=== PATIENT | female | born 1950 | race Caucasian/White ===

== ENCOUNTER → 2023-04-03 10:07 | Outpatient (BNVA) | payer BC, MEDICARE, SELFPAY | PROVIDERS: Visit Provider Physician Assistant Surgical ==

== ENCOUNTER 2023-04-04 14:22 | Outpatient (AMB) | payer SELFPAY ==
--- NOTE | 2023-04-04 14:19 | MHC.OFFVISWM ---
Intake VS Expanded 04/04/23 18:41 Height 5 ft 6 in Weight 230 lb 9 oz BMI 37.2 Body Fat 105.4 Body Fat Percentage 45.7 Free Fat Mass 125.2 Visceral Mass 15 Water Mass 88.4 BMR 1,743 Intake Visit Reasons: TV Gastric Balloon Allergies No Known Allergies Allergy (Verified 04/04/23 14:23) Medication List - Last Reconciled 04/04/23 by Rudy Poon MD cholecalciferol (vitamin D3) 25 mcg PO DAILY hydrochlorothiazide 12.5 mg PO DAILY multivitamin with iron (Daily Multiple Vitamins with Iron tablet) 1 tab PO DAILY omeprazole magnesium (Prilosec) 10 mg PO DAILY HPI TV Gastric Balloon HPI Details Start time: 2pm, End time: 3pm I spent 50 minutes speaking with the patient on the phone plus an additional 10 minutes reviewing and updating records for a total of 60 minutes HPI Comments History of Present Illness Details Patient is interested in endogastric balloon therapy. She wants to lose weight but she does not want to have bariatric surgery because of her age PFS Medical History (Updated 04/04/23 @ 14:25 by Rudy Poon MD) DJD (degenerative joint disease) GERD (gastroesophageal reflux disease) Hypertension Surgical History (Updated 04/03/23 @ 10:49 by Jojo Branch CMA) Hx of section Hx of knee surgery Hx of lumpectomy Social History (Updated 04/03/23 @ 10:47 by Jojo Branch CMA) Alcohol intake: never Patient Tobacco Use Status: Never used Tobacco Physical Exam Vital Signs: BMI result Body Mass Index 37.2 Assessment & Plan Assessment & Plan (1) Obesity: Code(s): E66.9 - Obesity, unspecified Plan: 1. Plan for endogastric balloon therapy. We discussed the process in detailed including the need for endoscopy to place the balloon as well as to remove 6 months later under sedation or general anesthesia. We discussed the need to be on a PPI and a multivitamin throughout the balloon therapy. We discussed the potential risks and complications of the balloon including premature removal, premature balloon with potential balloon migration and bowel obstructions, gastric ulcer, GI bleeding, gastric or esophageal perforation, pancreatitis. Specifically for the premature balloon deflation we discussed the instillation of methylene blue into the balloon so in case of premature deflation the patient's urine would be discolored. We also discussed the potential symptoms the patient may experience the first few days until the stomach is fully adjusted to the balloon, including nausea, vomiting, abdominal cramping, GERD, dehydration that may require IV hydration, fatigue, lack of energy, excessive fullness, or burping. I reassured her that these symptoms are temporary and subside completely within the first week. We also discussed that the expected weight loss is about 25% of her initial weight which corresponds to about 58lbs. We also discussed the possibility of inadequate weight loss. I emphasized the importance of purchasing a body composition scale and the need for weekly weight measurements and communication with me. We also discussed the need for a proper nutritional plan that will include a combination of protein shakes, protein bars and a proper food-based meal. The patient will need to be on a liquid diet during the first week until the stomach is fully adjusted to the balloon as well as the last week before endoscopic removal so the stomach empties from any residual food. We also discussed the philosophy of the program that we use the balloon as a motivating factor to work with me and change slowly her lifestyle by improving her nutritional and exercise plan. This approach will maximize the weight loss from the balloon therapy and allow her to maintain her weight after the balloon is removed. Finally we discussed the importance of long-term follow-up in our practice in order to maintain her weight loss long-term. The patient is in agreement with the plan and wants to proceed with placement. 2. The patient will undergo a blood work and a H pylori breath test. 3. We will get a copy of her most recent gastroscopy and colonoscopy as well as recent cardiac work-up. 4. I gave her directions as to which body composition scale, protein shakes and bars she needs to buy prior to balloon placement. (2) BMI 37.0-37.9, adult: Code(s): Z68.37 - Body mass index [BMI] 37.0-37.9, adult (3) Hypertension: Code(s): I10 - Essential (primary) hypertension (4) GERD (gastroesophageal reflux disease): Code(s): K21.9 - Gastro-esophageal reflux disease without esophagitis (5) DJD (degenerative joint disease): Code(s): M19.90 - Unspecified osteoarthritis, unspecified site Orders: Orders Vitamin B12 and Folate Today E66.9 - Obesity, unspecified, I10 - Essential (primary) hypertension, K21.9 - Gastro-esophageal reflux disease without esophagitis, Z68.37 - Body mass index [BMI] 37.0-37.9, adult Comprehensive Met. Panel Today E66.9 - Obesity, unspecified, I10 - Essential (primary) hypertension, K21.9 - Gastro-esophageal reflux disease without esophagitis, Z68.37 - Body mass index [BMI] 37.0-37.9, adult C Reactive Protein Today E66.9 - Obesity, unspecified, I10 - Essential (primary) hypertension, K21.9 - Gastro-esophageal reflux disease without esophagitis, Z68.37 - Body mass index [BMI] 37.0-37.9, adult Ferritin Today E66.9 - Obesity, unspecified, I10 - Essential (primary) hypertension, K21.9 - Gastro-esophageal reflux disease without esophagitis, Z68.37 - Body mass index [BMI] 37.0-37.9, adult Hemoglobin A1c Today E66.9 - Obesity, unspecified, I10 - Essential (primary) hypertension, K21.9 - Gastro-esophageal reflux disease without esophagitis, Z68.37 - Body mass index [BMI] 37.0-37.9, adult Insulin Today E66.9 - Obesity, unspecified, I10 - Essential (primary) hypertension, K21.9 - Gastro-esophageal reflux disease without esophagitis, Z68.37 - Body mass index [BMI] 37.0-37.9, adult IRON PROFILE Today E66.9 - Obesity, unspecified, I10 - Essential (primary) hypertension, K21.9 - Gastro-esophageal reflux disease without esophagitis, Z68.37 - Body mass index [BMI] 37.0-37.9, adult Lipid Panel Today E66.9 - Obesity, unspecified, I10 - Essential (primary) hypertension, K21.9 - Gastro-esophageal reflux disease without esophagitis, Z68.37 - Body mass index [BMI] 37.0-37.9, adult PTHI Today E66.9 - Obesity, unspecified, I10 - Essential (primary) hypertension, K21.9 - Gastro-esophageal reflux disease without esophagitis, Z68.37 - Body mass index [BMI] 37.0-37.9, adult TSH reflex Free T4 Today E66.9 - Obesity, unspecified, I10 - Essential (primary) hypertension, K21.9 - Gastro-esophageal reflux disease without esophagitis, Z68.37 - Body mass index [BMI] 37.0-37.9, adult Vitamin A Today E66.9 - Obesity, unspecified, I10 - Essential (primary) hypertension, K21.9 - Gastro-esophageal reflux disease without esophagitis, Z68.37 - Body mass index [BMI] 37.0-37.9, adult Vitamin B1 Today E66.9 - Obesity, unspecified, I10 - Essential (primary) hypertension, K21.9 - Gastro-esophageal reflux disease without esophagitis, Z68.37 - Body mass index [BMI] 37.0-37.9, adult Vitamin D 25-OH Total Today E66.9 - Obesity, unspecified, I10 - Essential (primary) hypertension, K21.9 - Gastro-esophageal reflux disease without esophagitis, Z68.37 - Body mass index [BMI] 37.0-37.9, adult Zinc Today E66.9 - Obesity, unspecified, I10 - Essential (primary) hypertension, K21.9 - Gastro-esophageal reflux disease without esophagitis, Z68.37 - Body mass index [BMI] 37.0-37.9, adult Complete Blood Count Auto Diff Today E66.9 - Obesity, unspecified, I10 - Essential (primary) hypertension, K21.9 - Gastro-esophageal reflux disease without esophagitis, Z68.37 - Body mass index [BMI] 37.0-37.9, adult H Pylori Breath Test Today E66.9 - Obesity, unspecified, I10 - Essential (primary) hypertension, K21.9 - Gastro-esophageal reflux disease without esophagitis, Z68.37 - Body mass index [BMI] 37.0-37.9, adult Telehealth Telehealth Location of provider rendering services: practice address Location of patient: address on file Patient Identification confirmed using: Name, : Yes Telehealth method: voice only Patient verbally consented to treatment: Yes Patient verbally consented to billing insurance company: Yes Patient informed of any privacy concerns related to visit: Yes Minutes spent on Phone/Video with Pt.: 60 Coding Level of Care Code Tele [facility] Pt Level 5 (43261) Diagnoses Obesity E66.9 BMI 37.0-37.9, adult Z68.37 Hypertension I10 GERD (gastroesophageal reflux disease) K21.9 DJD (degenerative joint disease) M19.90 Time Spent (min) 60
[2023-04-04 18:41] VITALS: BMI 37.2
== END 2023-04-04 21:05 | disposition home or self-care (01) ==
PROVIDERS: Visit Provider Surgery
DX: E66.9 Obesity, unspecified (principal); Z68.37 Body mass index [BMI] 37.0-37.9, adult
CPT/HCPCS: 99443

== ENCOUNTER → 2023-04-04 14:22 | Outpatient (BNVA) | payer BC, MEDICARE, SELFPAY | PROVIDERS: Visit Provider Surgery ==

== ENCOUNTER 2023-04-22 08:53 | Outpatient (REF) | payer MEDICARE, SELFPAY ==
[2023-04-25 12:53] LABS: H Pylori Breath Test Positive (Negative)
== END 2023-04-22 08:54 | disposition home or self-care (01) ==
LOC: HO.LNP 08:53
PROVIDERS: Visit Provider Surgery
DX: E66.9 Obesity, unspecified (principal); Z68.37 Body mass index [BMI] 37.0-37.9, adult; K21.9 Gastro-esophageal reflux disease without esophagitis; I10 Essential (primary) hypertension
CPT/HCPCS: 83013; 99211

== ENCOUNTER 2023-06-04 09:24 | Outpatient (AMB) | payer MEDICARE, SELFPAY ==
--- NOTE | 2023-06-04 09:26 | A.OFFVIS_ITS ---
Intake VS Expanded 06/04/23 09:31 BP 176/79 H Blood Pressure Location Rt brachial Blood Pressure Position Sitting Pulse 79 Pulse Source Pulse Oximeter Temp 97.4 F Temperature Source Temporal Artery Scan Pulse Oximetry 98 Oxygen Delivery Method Room Air Height 5 ft 6 in Weight 228 lb BMI 36.8 Body Fat % 47.9 Body Fat Mass 109.2 Fat Free Mass 118.8 Visceral Fat Rating 16.0 Body Water % 36.8 Body Water Mass 83.8 Muscle Mass/Score 112.8 Basal Metabolic Rate/Score 1,670 Intake Visit Reasons: (OV) f/u Gastric Balloon Allergies No Known Allergies Allergy (Verified 06/04/23 09:30) HPI HPI Comments History of Present Illness Details Here to discuss the [employer]ber[employer] gastric balloon [facility] Medical History (Updated 06/04/23 @ 18:17 by Rudy Poon MD) DJD (degenerative joint disease) GERD (gastroesophageal reflux disease) Hypertension Surgical History (Updated 06/04/23 @ 09:33 by Jojo Branch CMA) Hx of oral surgery Hx of knee surgery Hx of section Hx of lumpectomy Social History Alcohol intake: never Patient Tobacco Use Status: Never used Tobacco Physical Exam Vital Signs: Last Vital Signs Temp 97.4 F 06/04/23 09:31 Pulse 79 06/04/23 09:31 BP 176/79 H 06/04/23 09:31 Pulse Ox 98 06/04/23 09:31 Oxygen Delivery Method Room Air 06/04/23 09:31 BMI result Body Mass Index 36.8 Assessment & Plan Assessment & Plan (1) Obesity: Code(s): E66.9 - Obesity, unspecified Plan: 1.? Plan for endogastric balloon therapy. Patient came with her and asked a lot of questions. We discussed the process in detailed including the need for endoscopy to place the balloon as well as to remove 6 months later under sedation or general anesthesia. We discussed the benefits and disadvantages of this in relation to the [employer]urion swallowable gastric balloon. We discussed the need to be on a PPI and a multivitamin throughout the balloon therapy. We discussed the potential risks and complications of the balloon including premature removal, premature balloon with potential balloon migration and bowel obstructions, gastric ulcer, GI bleeding, gastric or esophageal p erforation, pancreatitis. Specifically for the premature balloon deflation we discussed the instillation of methylene blue into the balloon so in case of premature deflation the patient's urine would be discolored. We also discussed the potential symptoms the patient may experience the first few days until the stomach is fully adjusted to the balloon, including nausea, vomiting, abdominal cramping, GERD, dehydration that may require IV hydration, fatigue, lack of energy, excessive fullness, or burping. I reassured her that these symptoms are temporary and subside completely within the first week. We also discussed that the expected weight loss is about 25% of her initial weight which corresponds to about 50lbs. We also discussed the possibility of inadequate weight loss. She has already purchased a body composition scale and the need for weekly weight measurements and communication with me. We also discussed the need for a proper nutritional plan that will include a combination of protein shakes, protein bars and a proper food-based meal. She has purchased these as well. The patient will need to be on a liquid diet during the first week until the stomach is fully adjusted to the balloon as well as the last week before endoscopic removal so the stomach empties from any residual food. We also discussed the philosophy of the program that we use the balloon as a motivating factor to work with me and change slowly her lifestyle by improving her nutritional and exercise plan. This approach will maximize the weight loss from the balloon therapy and allow her to maintain her weight after the balloon is removed. Finally we discussed the importance of long-term follow-up in our practice in order to maintain her weight loss long-term. The patient is in agreement with the plan and wants to proceed with placement. (2) BMI 36.0-36.9,adult: Code(s): Z68.36 - Body mass index [BMI] 36.0-36.9, adult Coding Level of Care Code Est Pt Level 5 (87836) Diagnoses Obesity E66.9 BMI 36.0-36.9,adult Z68.36 Time Spent (min) 50
[2023-06-04 09:31] VITALS: BP 176/79; PULSE 79; TEMP 36.3; O2SAT 98; BMI 36.8
== END 2023-06-04 18:22 | disposition home or self-care (01) ==
PROVIDERS: Visit Provider Surgery
DX: E66.9 Obesity, unspecified (principal); Z68.36 Body mass index [BMI] 36.0-36.9, adult
CPT/HCPCS: 99215

== ENCOUNTER → 2023-06-04 09:24 | Outpatient (BNVA) | payer BC, SELFPAY | PROVIDERS: Visit Provider Surgery | DX: E66.9 Obesity, unspecified (principal); Z68.36 Body mass index [BMI] 36.0-36.9, adult | CPT/HCPCS: 99212 ==

== ENCOUNTER → 2023-06-11 09:59 | Outpatient (BNVA) | payer MEDICARE, SELFPAY | PROVIDERS: PCP Student in an Organized Health Care Education/Training Program; Visit Provider Surgery | DX: E66.9 Obesity, unspecified (principal); K21.9 Gastro-esophageal reflux disease without esophagitis; Z68.36 Body mass index [BMI] 36.0-36.9, adult | CPT/HCPCS: 99212 ==

== ENCOUNTER 2023-06-11 10:14 | Outpatient (AMB) | payer MEDICARE, SELFPAY ==
--- NOTE | 2023-06-11 10:02 | A.OFFVIS_ITS ---
Intake VS Expanded 06/11/23 10:08 BP 184/84 H Blood Pressure Location Rt brachial Blood Pressure Position Sitting Pulse 66 Pulse Source Pulse Oximeter Temp 97.7 F Temperature Source Temporal Artery Scan Pulse Oximetry 99 Oxygen Delivery Method Room Air Height 5 ft 6 in Weight 228 lb 9.6 oz BMI 36.9 Body Fat % 47.0 Body Fat Mass 107.4 Fat Free Mass 121.0 Visceral Fat Rating 15.0 Body Water % 37.4 Body Water Mass 85.4 Muscle Mass/Score 114.8 Basal Metabolic Rate/Score 1,694 Intake Visit Reasons: (OV) Pre Op Gastric Balloon 06/19/23 Allergies No Known Allergies Allergy (Verified 06/11/23 10:09) PFSH Medical History (Updated 06/11/23 @ 11:02 by Rudy Poon MD) DJD (degenerative joint disease) GERD (gastroesophageal reflux disease) Hypertension Surgical History (Updated 06/04/23 @ 09:33 by Jojo Branch CMA) Hx of oral surgery Hx of knee surgery Hx of section Hx of lumpectomy Social History Alcohol intake: never Patient Tobacco Use Status: Never used Tobacco Physical Exam Vital Signs: Last Vital Signs Temp 97.7 F 06/11/23 10:08 Pulse 66 06/11/23 10:08 BP 184/84 H 06/11/23 10:08 Pulse Ox 99 06/11/23 10:08 Oxygen Delivery Method Room Air 06/11/23 10:08 BMI result Body Mass Index 36.9 Assessment & Plan Assessment & Plan (1) Obesity: Code(s): E66.9 - Obesity, unspecified Plan: 1.? Plan for endogastric balloon therapy. We discussed the process in detailed including the need for endoscopy to place the balloon as well as to remove 6 months later under sedation or general anesthesia. We discussed the need to be on a PPI and a multivitamin throughout the balloon therapy. We discussed the p otential risks and complications of the balloon including premature removal, premature balloon with potential balloon migration and bowel obstructions, gastric ulcer, GI bleeding, gastric or esophageal perforation, pancreatitis. Specifically for the premature balloon deflation we discussed the instillation of methylene blue into the balloon so in case of premature deflation the patient's urine would be discolored. We also discussed the potential symptoms the patient may experience the first few days until the stomach is fully adjusted to the balloon, including nausea, vomiting, abdominal cramping, GERD, dehydration that may require IV hydration, fatigue, lack of energy, excessive fullness, or burping. I reassured her that these symptoms are temporary and subside completely within the first week. We also discussed that the expected weight loss is about 25% of her initial weight which corresponds to about 58lbs. We also discussed the possibility of inadequate weight loss. I emphasized the importance of purchasing a body composition scale and the need for weekly weight measurements and communication with me. We also discussed the need for a proper nutritional plan that will include a combination of protein shakes, protein bars and a proper food-based meal. The patient will need to be on a liquid diet during the first week until the stomach is fully adjusted to the balloon as well as the last week before endoscopic removal so the stomach empties from any residual food. We also discussed the philosophy of the program that we use the balloon as a motivating factor to work with me and change slowly her lifestyle by improving her nutritional and exercise plan. This approach will maximize the weight loss from the balloon therapy and allow her to maintain her weight after the balloon is removed. Finally we discussed the importance of long-term follow- up in our practice in order to maintain her weight loss long-term. The patient is in agreement with the plan and wants to proceed with placement. 2. The patient will undergo a blood work and an EKG 3. I gave her directions as to which body composition scale, protein shakes and bars she needs to buy prior to balloon placement. 4. Preop prescriptions were provided and explained the purpose of each one. Need to be purchased preop. Start Pantoprazole now as you get it from the pharmacy, 1 pill per day. Sucralfate, Levsin and Zofran are for after the procedure as needed. 5. Avoid aspirin, motrin, Advil, Aleve, Ibuprofen, Naproxyn. Tylenol is OK. 6. She needs to purchase Gatorade zero, or Crystal light or Pedialyte or Propel 7. Will do basic preop blood work-up any day between 06/12/23 and Friday06/13/23 fasting for 12 hours and is scheduled to see the Anesthesiologist prior to the day of surgery. 8. Importance of adherence to postop folllow-up and recommendations was underscored and she understands that. 9. Stop food and bars as of Friday06/17/23 and continue with 4 Celebrate Rebu ild protein shakes (HALF scoop EACH in 8oz low fat milk) at 8am-10am, 11am-1pm, 2pm-4pm, 5pm-7pm and one more Celebrate Rebuild shake with ONE scoop in 8oz low fat milk at 8pm-10pm 10. No soups, broths or V8 11. Please stop the Hydrochlorothiazide on Friday06/16/23. Check your blood pressure daily in the morning and let me know if it is over 120/80 12. Please take at the day of the procedure the following medications: NONE 13. Absolutely no smoking or vaping, or marijuana until the procedure and for at least the first 4 weeks. Only nicotine patches are allowed. 14. Send me weight measurements today and again on 06/19/23 at the day of procedure before you go to the hospital. 15. Avoid any steroids by mouth for any reason. Let me know if someone prescribes them to you (2) BMI 36.0-36.9,adult: Code(s): Z68.36 - Body mass index [BMI] 36.0-36.9, adult (3) GERD (gastroesophageal reflux disease): Code(s): K21.9 - Gastro-esophageal reflux disease without esophagitis Orders: Orders Prothrombin Time INR Today E66.9 - Obesity, unspecified, Z68.36 - Body mass index [BMI] 36.0-36.9, adult Partial Thromboplastin Time Today E66.9 - Obesity, unspecified, Z68.36 - Body mass index [BMI] 36.0-36.9, adult ECG 12 lead EKG Today E66.9 - Obesity, unspecified, Z68.36 - Body mass index [BMI] 36.0-36.9, adult Medications: New pantoprazole 40 mg PO DAILY 30 tabs 2RF K21.9 - Gastro-esophageal reflux disease without esophagitis sucralfate 10 mL PO BID 400 mL 0RF K21.9 - Gastro-esophageal reflux disease without esophagitis hyoscyamine sulfate (Levsin) 0.125 mg PO QID 30 tabs 1RF R10.9 - Unspecified abdominal pain ondansetron 4 mg PO Q6H 30 tabs 0RF nausea and vomiting R11.0 - Nausea Coding Level of Care Code Est Pt Level 4 (32942) Diagnoses Obesity E66.9 BMI 36.0-36.9,adult Z68.36 GERD (gastroesophageal reflux disease) K21.9 Time Spent (min) 35
[2023-06-11 10:08] VITALS: BP 184/84; PULSE 66; TEMP 36.5; O2SAT 99; BMI 36.9
== END 2023-06-11 11:14 | disposition home or self-care (01) ==
PROVIDERS: PCP Student in an Organized Health Care Education/Training Program; Visit Provider Surgery
DX: E66.9 Obesity, unspecified (principal); Z68.36 Body mass index [BMI] 36.0-36.9, adult; K21.9 Gastro-esophageal reflux disease without esophagitis
CPT/HCPCS: 99214

== ENCOUNTER 2023-06-18 06:05 | Day surgery (SDC) | payer MEDICARE, SELFPAY ==
--- NOTE | 2023-06-11 11:12 | ECG_ITS ---
Test Reason : obs Blood Pressure : / mmHG Vent. Rate : 069 BPM Atrial Rate : 069 BPM P-R Int : 128 ms QRS Dur : 090 ms QT Int : 402 ms P-R-T Axes : 061 009 -09 degrees QTc Int : 430 ms Normal sinus rhythm Normal ECG No previous ECGs available Referred By: Rudy Poon Electronically Signed By:CHYNA NELSON MD
[2023-06-12 10:03] LABS: MANUAL DIFF FLAG NO
[2023-06-12 10:51] LABS: Basophils Percent Auto 0.5 % (0-2); Eosinophils Absolute Auto 0.1 X10*3/uL (0.0-0.4); Eosinophils Percent Auto 1.8 % (0-4); Hematocrit 32.2 % (37.0-47.0); Imm Gran Abs Auto 0.02 X10*3/uL (0.00-0.03); Imm Gran Pct Auto 0.3 % (0.0-0.4); Lymphocytes Absolute Auto 1.1 X10*3/uL (1.2-4.9); Lymphocytes Percent Auto 16.1 % (20-40); Mean Corpuscular HGB Conc 31.1 g/dl (31.0-35.0); Mean Platelet Volume 11.4 fL (9.4-12.3); Monocytes Absolute Auto 0.5 X10*3/uL (0.1-1.2); Monocytes Percent Auto 7.8 % (2-11); Neutrophils Absolute Auto 4.8 x10*3/uL (2.0-8.3); Neutrophils Percent Auto 73.5 % (45-73); Platelet Count 285 X10*3/uL (160-400); Red Cell Distribution Width 15.9 % (11.0-16.0); White Blood Count 6.6 X10*3/uL (4.8-10.8)
[2023-06-12 10:59] LABS: Estimated Average Glucose 111 mg/dL; Hemoglobin A1c % 5.5 % (<6.0)
[2023-06-12 11:01] LABS: INTERNATIONAL NORM RATIO 0.9 (0.9-1.1); Prothrombin Time 10.9 SEC (11.1-13.3)
[2023-06-12 11:04] LABS: Partial Thromboplastin Time 29.4 SEC (26.0-36.4)
[2023-06-12 12:07] LABS: Alanine Aminotransferase 22 U/L (0-31); Albumin Level 3.9 g/dL (3.5-5.0); Alkaline Phosphatase 71 U/L (39-117); Anion Gap 14 (12-20); Aspartate Amino Transferase 20 U/L (5-31); Bilirubin Total 0.4 mg/dL (0.0-1.0); Blood Urea Nitrogen 23 mg/dL (9-16); C Reactive Protein 0.92 mg/dL (< or = 0.50); Calcium 9.6 mg/dL (8.4-10.2); Carbon Dioxide 25 mmol/L (22-29); Chloride 106 mmol/L (96-108); Cholesterol 193 mg/dL (<200); Estimated Glomerular Filt Rate > 60; Glucose Random 101 mg/dL (60-115); HDL Cholesterol 51 mg/dL (>40); Iron 24 mcg/dL (30-160); LDL Cholesterol Calculated 121 mg/dL (<100); Percent Iron Saturation 6 % (15-50); Potassium 3.9 mmol/L (3.3-5.1); Sodium 141 mmol/L (135-145); Total Iron Binding Capacity 383 mcg/dL (228-428); Total Protein 7.8 g/dL (6.5-8.0); Triglycerides 107 mg/dL (<150); Unsaturated Iron Binding 359 ug/dL
[2023-06-12 12:11] LABS: Ferritin 18 ng/mL (10-250); Insulin 14 uU/mL (2-29); TSH reflex Free T4 6.68 uIU/mL (0.32-4.0); Vitamin D 25-OH Total 74.9 ng/mL (>30)
[2023-06-12 12:18] LABS: Folate 11.9 ng/mL (> or = 4.0); Vitamin B12 > 2000 pg/mL (200-900)
[2023-06-12 12:45] LABS: Free T4 (Free Thyroxine) 0.87 ng/dL (0.71-1.85)
[2023-06-13 18:32] LABS: Calcium (PTHI) 9.4 mg/dL (8.6-10.4); PTHI 19 pg/mL (16-77)
--- NOTE | 2023-06-13 21:36 | P.HPSUR_ITS ---
Pre-Procedural Eval Section A Date of Service: 06/13/23 The patient is an INPATIENT: No The History & Physical has been completed within 30 days and I have reviewed it.: Yes Section B Chief Complaint: Morbid (severe) obesity due to excess calories Relevant Family History (Specify if Yes): No Relevant Social History: None Present Medications: None Medical History: No relevant PMH History of Previous Operations: No relevant previous surgery Allergies: Allergies Allergy/AdvReac Type Severity Reaction Status Date / Time No Known Allergies Allergy Verified 06/11/23 10:09 Review of Systems Sugical H&P ROS: Negative: Constitution, Cardiovascular, Respiratory, Neurological, Psychiatric, Hem-Onc, Allergic/Immunologic, Gastrointestinal, Genitourinary, Musculoskeletal, Integumentary, Endocrine and Eyes/Ears/Nos e/Throat Exam Surgical H&P Exam: Normal: HEENT, Normal: Heart, Normal: Lungs, Normal: Extremities, Normal: Abdomen, Normal: Skin and Normal: Neurological Plan Diagnosis/Plan: Unchanged I have reviewed the history and physical and performed a pertinent physical examination on my patient. No changes have occurred unless specified. Time Spent With Patient Time: Total time managing care of this patient today ____ minutes.
[2023-06-15 16:12] LABS: Zinc 63 mcg/dL (60-130)
[2023-06-16 12:52] LABS: Vitamin B1 10 nmol/L (8-30)
--- NOTE | 2023-06-17 08:42 | HO.ANESPROP2 ---
Documented by User: Shantelle Nixon NP 06/17/23 10:14 HPI - Anesthesia Eval Consult details Narrative: 72yo F for EGD Gastric Balloon Placement Last TSH elevated @ 6.68 PMFSH Active Problems Active Problems: All Active Problems (Updated 06/13/23 @ 22:23 by Rudy Poon MD) Hypothyroidism (Acute) Nausea (Acute) BMI 36.0-36.9,adult (Acute) DJD (degenerative joint disease) (Acute) GERD (gastroesophageal reflux disease) (Acute) Hypertension (Acute) BMI 37.0-37.9, adult (Acute) Obesity (Acute) Past Medical History Medical History (Updated 07/11/23 @ 10:39 by Rudy Poon MD) History of thyroid disease Anemia DJD (degenerative joint disease) GERD (gastroesophageal reflux disease) Hypertension Surgical History Surgical History (Updated 06/18/23 @ 06:24 by Susan Zavala RN) Hx of oral surgery Hx of knee surgery Hx of section Hx of lumpectomy Social History Alcohol intake: never Patient Tobacco Use Status: Former Tobacco user Tobacco use type: Cigarette Meds Allergies Allergy/AdvReac Type Severity Reaction Status Date / Time No Known Allergies Allergy Verified 06/11/23 10:09 Home Medications Medication Instructions Recorded Confirmed Last Taken Type cholecalciferol (vitamin D3) 25 25 mcg PO DAILY 04/03/23 04/04/23 Unknown History mcg (1,000 unit) capsule hydrochlorothiazide 12.5 mg capsule 12.5 mg PO DAILY 04/03/23 04/04/23 Unknown History multivitamin with iron (Daily 1 tab PO DAILY 04/03/23 04/04/23 Unknown History Multiple Vitamins with Iron tablet) Exam Exam Date and Time: June 17, 2023 0842 Pertinent Lab Results Pertinent Lab Results: Laboratory Tests 06/12/23 10:01 WBC 6.6 RBC 3.70 L Hgb 10.0 L Hct 32.2 L MCV 87.0 MCH 27.0 MCHC 31.1 RDW 15.9 Plt Count 285 MPV 11.4 Immature Gran % (Auto) 0.3 Neut % (Auto) 73.5 H Lymph % (Auto) 16.1 L Cuming % (Auto) 7.8 Eos % (Auto) 1.8 Baso % (Auto) 0.5 Lymph # (Auto) 1.1 L Cuming # (Auto) 0.5 Eos # (Auto) 0.1 Baso # (Auto) 0.0 Abs Immat Gran (auto) 0.02 Absolute Neuts (auto) 4.8 Absolute Nucleated RBC 0.000 Nucleated RBC % (auto) 0.0 PT 10.9 L INR 0.9 APTT 29.4 Sodium 141 Potassium 3.9 Chloride 106 Carbon Dioxide 25 Anion Gap 14 BUN 23 H Creatinine 0.84 Estim Creat Clear Calc TNP Estimated GFR > 60 Random Glucose 101 Estimat Average Glucose 111 Hemoglobin A1c % 5.5 Insulin Level 14 Calcium 9.6 Iron 24 L TIBC 383 % Saturation 6 L Unsat Iron Binding 359 Ferritin 18 Total Bilirubin 0.4 AST 20 ALT 22 Alkaline Phosphatase 71 C-Reactive Protein 0.92 H Total Protein 7.8 Albumin 3.9 Triglycerides 107 Cholesterol 193 LDL Cholesterol, Calc 121 H HDL Cholesterol 51 Vitamin B1 10 Vitamin B12 > 2000 H 25-OH Vitamin D Total 74.9 Folate 11.9 TSH 6.68 H Free T4 0.87 PTH Intact 19 Calcium (PTH Intact) 9.4 Zinc 63 Narrative Narrative: EKG 05/2023 Vent. Rate : 069 BPM Atrial Rate : 069 BPM P-R Int : 128 ms QRS Dur : 090 ms QT Int : 402 ms P-R-T Axes : 061 009 -09 degrees QTc Int : 430 ms Normal sinus rhythm Normal ECG No previous ECGs available Assessment and Plan Assessment Anesthesia Assessment: Chart Reviewed Documented by User: Aly Carerra MD 07/17/23 18:29 REPLACED BY [facility] Past Medical History Medical History (Updated 07/11/23 @ 10:39 by Rudy Poon MD) History of thyroid disease Anemia DJD (degenerative joint disease) GERD (gastroesophageal reflux disease) Hypertension Functional capacity: independent ambulation Family History Family history of problems with anesthesia: No Surgical History Surgical History (Updated 06/18/23 @ 06:24 by Susan Zavala RN) Hx of oral surgery Hx of knee surgery Hx of section Hx of lumpectomy History of Problems with Anesthesia: No Social History Alcohol intake: never Patient Tobacco Use Status: Former Tobacco user Tobacco use type: Cigarette Meds Allergies Allergy/AdvReac Type Severity Reaction Status Date / Time No Known Allergies Allergy Verified 06/11/23 10:09 Home Medications Medication Instructions Recorded Confirmed Last Taken Type cholecalciferol (vitamin D3) 25 25 mcg PO DAILY 04/03/23 04/04/23 Unknown History mcg (1,000 unit) capsule hydrochlorothiazide 12.5 mg capsule 12.5 mg PO DAILY 04/03/23 04/04/23 Unknown History multivitamin with iron (Daily 1 tab PO DAILY 04/03/23 04/04/23 Unknown History Multiple Vitamins with Iron tablet) Exam Airway Mallampati Class: IV Loose/Missing/Broken Teeth: Yes Assessment and Plan Assessment Anesthesia Assessment: Anesthesia Plan Discussed Final Anesthetic Review Family History of Problems with Anesthesia: No History of Problems with Anesthesia: No NPO: Yes ASA Class: III Final Preanesthetic Review: Meds/Allgs Chart Reviewed, Consent Obtained/Reviewed and Anes Risks/Benef Reviewed Patient Risk: High Procedure Risk: Intermediate Anesthetic Plan Anesthetic Plan: GA, MAC: and Agree w/ Assess. and Plan Disposition: Standard PACU
[2023-06-18] VITALS (16 sets, daily range): BP systolic 123–166; BP diastolic 52–82; PULSE 58–82; RESP 13–16; TEMP 36.1–36.6; O2SAT 94–99; BMI 34.8
[2023-06-18] MEDS: Lactated Ringers 1,000 ML 999 ML IV (06:46)
[2023-06-18] MEDS: Aprepitant 32 MG/4.4 ML VIAL IVPUSH (06:47)
--- NOTE | 2023-06-18 07:32 | P.BOP_ITS ---
Brief Operative Note Date of Service: 06/18/23 Pre-op diagnosis: Severe obesity with comorbidities (see below) Post-op diagnosis: same Procedure: PROCEDURE DATE: 06/18/2023 PREOPERATIVE DIAGNOSIS: Severe obesity with a BMI of 37.2 kg/m2 comorbidities including hypothyroidism, hypertension, GERD, DJD, history of breast cancer, anemia POSTOPERATIVE DIAGNOSIS: ?Same as above and distal gastritis PROCEDURE: [id number] with endoscopic Orbera Gastric balloon placement Surgeon: ?Rk Poon M.D.. Ph.D. Palliative Care Physician: None ? Anesthesia: General anesthesia Estimated blood loss: None FINDINGS AND PROCEDURE: ? OPERATIVE INDICATIONS: ?The patient is a 72 year old female known to me who is interested to lose weight. After a 28.3lbs (10.26% TBWL) pre-procedural weight loss, the patient is here today for endoscopic Orbera gastric balloon placement. We discussed with the patient preoperatively all available weight loss methods we offer and she opted to proceed with the Orbera gastric balloon. Risks and complications of the gastric balloon therapy were discussed with the patient in advance particularly the possibility of perforation or bleeding that may require surgical intervention, premature balloon deflation and bowel obstructions, gastric ulcer, esophageal injury, pancreatitis, dehydration, need for IV lfuids or premature endoscopic removal of the balloon. The patient understood the risks and was in agreement with the plan. ? PROCEDURE: After informed consent was obtained by the patient, the patient was ?transferred to the Operating Room and was placed in the supine position.? After successful induction of general anesthesia, an upper endoscopy was performed next, the oropharynx and esophagus appeared within the normal limits. There was no obvious hiatal hernia. The z-line was smooth. The stomach was entered and it appeared to be of normal size. There was mild gastritis at distal antrum. There was no stricture or ulcer. The pylorus and proximal duodenum were visualized but I was not able to enter to the duodenum as the stomach was quite tortuous. A retroflexion was performed and no pathology was noted at the gastric fundus or near the GE junction. At that point the stomach was decompressed and the scope was withdrawn from the patient's mouth. The Orbera gastric balloon was passed transorally into the stomach. Once the balloon was advanced into the stomach, the gastroscope was re-inserted to confirm that the balloon catheter was in a good position and there was no injury to the esophagus or stomach. Once I confirmed all the above, the balloon was in flated under continuous endsocopic visualization with 550ml of sterile saline mixed with 3ml of methylene blue. Once the balloon was inflated, the catheter was pulled back and detached from the balloon itself without difficulty. The catheter was removed from the patient's mouth. The balloon was insepcted carefully with the gastroscope to make sure that it was in a good position and there was no obvious leak of fluid from the valve. The balloon was in a good position and there was no leak from the valve. At that point the stomach was decompressed and the scope was withdrawn from the patient's mouth while the stomach and esophagus were inspected again from any injuries. There were not any noted. The patient was awaken and was transferred in stable condition to the Recovery Room for further care. I was present and performed all steps of the procedure. There were no residents to assist with this case. Surgeon: Rudy Poon MD Anesthesia: GETA Was an Palliative Care Physician used for this Procedure?: No Palliative Care Physician: Ashley Gregorio Estimated blood loss (mL): 0 IV fluids (mL): 800 Urine output (mL): 0 (No [place] to record output) Pathology: none sent Condition: stable Disposition: PACU
[2023-06-18 08:05] LABS: Urine Cytology See Pathology rpt
[2023-06-18] MEDS: Pantoprazole Sodium 40 MG/10 ML VIAL IVPUSH (09:11)
[2023-06-18] MEDS: Thiamine HCL 100 MG in 0.9 % Sodium Chloride 100 ML 202 MG IV (10:03)
[2023-06-18] MEDS: Folic Acid 1 MG in 0.9 % Sodium Chloride 50 ML 100.4 MG IV (10:39)
[2023-06-18] MEDS: Lactated Ringers 1,000 ML 100 ML IVCONT (10:39)
[2023-06-18] MEDS: Cyanocobalamin (Vitamin B-12) 1,000 MCG/ML VIAL 1000 MCG IM (11:14)
[2023-06-18] MEDS: ondansetron HCL 4 MG/2 ML VIAL IVPUSH (11:34)
[2023-06-18 12:54] LABS: Vitamin A 50 mcg/dL (38-98)
== END 2023-06-18 12:35 | disposition home or self-care (01) ==
PROVIDERS: PCP Student in an Organized Health Care Education/Training Program; Visit Provider Surgery
PROC: (CPT 43290; principal; 2023-06-18 07:30)
DX: E66.01 Morbid (severe) obesity due to excess calories (principal); Z68.37 Body mass index [BMI] 37.0-37.9, adult; K21.9 Gastro-esophageal reflux disease without esophagitis; K29.60 Other gastritis without bleeding; D64.9 Anemia, unspecified; I10 Essential (primary) hypertension; E03.9 Hypothyroidism, unspecified; Z79.899 Other long term (current) drug therapy; Z85.3 Personal history of malignant neoplasm of breast; Z87.891 Personal history of nicotine dependence
CPT/HCPCS: 43290; 36415; 80053; 80061; 82306; 82607; 82728; 82746; 83036; 83525; 83540; 83970; 84425; 84439; 84443; 84590; 84630; 85025; 85610; 85730; 86140; 88112; 93005; C1726; C9145; J1100; J1756; J2250; J2405; J3411; Q9968

== ENCOUNTER → 2023-06-18 06:05 | Outpatient (BNV) | payer SELFPAY | PROVIDERS: PCP Student in an Organized Health Care Education/Training Program; Visit Provider Surgery | DX: E66.01 Morbid (severe) obesity due to excess calories (principal); Z68.36 Body mass index [BMI] 36.0-36.9, adult | CPT/HCPCS: 43290 ==

== ENCOUNTER 2023-06-27 08:09 | Outpatient (AMB) | payer MEDICARE, SELFPAY ==
--- NOTE | 2023-06-27 11:45 | A.OFFVIS_ITS ---
Intake VS Expanded 06/27/23 11:58 Height 5 ft 6 in Weight 216 lb 8 oz BMI 34.9 Body Fat % 46 Body Fat Mass 99.6 Fat Free Mass 117 Visceral Fat Rating 16 Body Water % 37 Body Water Mass 80.2 Basal Metabolic Rate/Score 1,503 Intake Visit Reasons: TV Post Op Gastric Balloon 06/18/23 Allergies No Known Allergies Allergy (Verified 06/11/23 10:09) HPI TV Post Op Gastric Balloon 06/18/23 HPI Details Start time: 11.45am, End time: 12.13pm ?I spent 23 minutes speaking with the patient on the phone plus an additional 5 minutes reviewing and updating records for a total of 28 minutes HPI Comments History of Present Illness Details Overall weight loss: 4.8lbs, or 2.21% TBWL Feels well. Denies any nausea, abdominal pain or GERD PFSH Medical History (Updated 06/27/23 @ 12:01 by Rudy Poon MD) History of thyroid disease Anemia DJD (degenerative joint disease) GERD (gastroesophageal reflux disease) Hypertension Surgical History (Updated 06/18/23 @ 06:24 by Susan Zavala RN) Hx of oral surgery Hx of knee surgery Hx of section Hx of lumpectomy Social History Alcohol intake: never Patient Tobacco Use Status: Former Tobacco user Tobacco use type: Cigarette Assessment & Plan Assessment & Plan (1) Obesity: Code(s): E66.9 - Obesity, unspecified Plan: 1. Please change nutritional plan to one Celebrate Rebuild with HALF scoop in 8oz almond milk at 9am-11am, lunch at 12pm (4 forks of protein and 4 forks of salad or vegetables), a Zone Perfect protein bar at 2pm-4pm, dinner at 6pm (4 forks of protein and 4 forks of salad or vegetables) and one more Zone Perfect protein bar OR a Celebrate Rebuild with HALF scoop in 8oz almond milk at 8pm- 10pm. 2. Avoid soups, broths, spinach, kale, lettuce and gloria 3. Start treadmill with an incline of 2.0 and speed of 2.5 mph. Increase incline by 1 every 3 min to a max incline of 8.0, stay 3min at 8.0 and then return to 2.0 and repeat same steps until calorie goal of 300 calories is met. Goal is to burn 2000 calories per week. 4. You can also use the elliptical or the bike for 300 calories or split and so 150 calories in one machine and 150 calories at the other machine 5. Let me know if you feel hungry or you develop any nausea, vomiting, heartburn or abdominal pain 6. Send me weight measurements weekly on Wednesdays 7. Continue Pantoprazole, levothyroxine and multivitamins daily 8. Check your blood pressure daily. If it is below 120/70 do not take any medications. If it is 121/71 to 130/80, take half Lisinopril. If it is between 131/91 to 140/90, take half Lisinopril and one Hydrochlorothiazide. If it is over 141/91 take one Lisinopril and one Hydrochlorothiazide (2) BMI 34.0-34.9,adult: Code(s): Z68.34 - Body mass index [BMI] 34.0-34.9, adult Telehealth Telehealth Location of provider rendering services: practice address Location of patient: address on file Patient Identification confirmed using: Name, : Yes Telehealth method: voice only Patient verbally consented to treatment: Yes Patient verbally consented to billing insurance company: Yes Patient informed of any privacy concerns related to visit: Yes Minutes spent on Phone/Video with Pt.: 28 Coding Level of Care Code Tele Est Pt Level 3 (79416) Diagnoses Obesity E66.9 BMI 34.0-34.9,adult Z68.34 Time Spent (min) 28
[2023-06-27 11:58] VITALS: BMI 34.9
== END 2023-06-27 12:14 | disposition home or self-care (01) ==
LOC: HO.HBS 08:09
PROVIDERS: PCP Student in an Organized Health Care Education/Training Program; Visit Provider Surgery
DX: E66.9 Obesity, unspecified (principal); Z68.34 Body mass index [BMI] 34.0-34.9, adult
CPT/HCPCS: 99443

== ENCOUNTER → 2023-06-27 08:09 | Outpatient (BNVA) | payer MEDICARE, SELFPAY | PROVIDERS: PCP Student in an Organized Health Care Education/Training Program; Visit Provider Surgery ==

== ENCOUNTER 2023-07-11 08:13 | Outpatient (AMB) | payer MEDICARE, SELFPAY ==
--- NOTE | 2023-07-11 10:22 | MHC.OFFVISWM ---
Intake VS Expanded 07/11/23 10:33 Height 5 ft 6 in Weight 208 lb 6 oz BMI 33.6 Body Fat % 44 Body Fat Mass 91.7 Fat Free Mass 116.8 Visceral Fat Rating 15 Body Water % 38.4 Body Water Mass 80 Basal Metabolic Rate/Score 1,529 Intake Visit Reasons: TV PO Gastric Balloon 06/18/23 Allergies No Known Allergies Allergy (Verified 06/11/23 10:09) HPI TV PO Gastric Balloon 06/18/23 HPI Details Start time: 10.25am, End time: 10.45am ?I spent 15 minutes speaking with the patient on the phone plus an additional 5 minutes reviewing and updating records for a total of 20 minutes HPI Comments History of Present Illness Details Overall weight loss: 13lbs, or 5.8% TBWL Has COVID presently and complains of nausea and voming. Has been on Pavloxid which has such as adverse reactions Presently drinks only water PFSH Medical History (Updated 07/11/23 @ 10:39 by Rudy Poon MD) History of thyroid disease Anemia DJD (degenerative joint disease) GERD (gastroesophageal reflux disease) Hypertension Surgical History (Updated 06/18/23 @ 06:24 by Susan Zavala RN) Hx of oral surgery Hx of knee surgery Hx of section Hx of lumpectomy Social History Alcohol intake: never Patient Tobacco Use Status: Former Tobacco user Tobacco use type: Cigarette Assessment & Plan Assessment & Plan (1) Obesity: Code(s): E66.9 - Obesity, unspecified Plan: 1. Please update me daily how you feel 2. Do not use the Lisinopril or the Hydrochlorothiazide (water pill) 3. Talk to your doctor about the side effects you are experiencing as they may be related to the Pavloxid 4. Drink only water, 1oz every 15 minutes and track how many oz you drink per day and update me daily. 5. Try to do as many Celebrate Rebuild shakes per day mixing HALF scoop each in 8oz of water, any temperature you prefer 6. Continue multivitamins and Pantoprazole (2) BMI 32.0-32.9,adult: Code(s): Z68.32 - Body mass index [BMI] 32.0-32.9, adult Telehealth Telehealth Location of provider rendering services: practice address Location of patient: address on file Patient Identification confirmed using: Name, : Yes Telehealth method: voice only Patient verbally consented to treatment: Yes Patient verbally consented to billing insurance company: Yes Patient informed of any privacy concerns related to visit: Yes Minutes spent on Phone/Video with Pt.: 20 Coding Level of Care Code Tele Est Pt Level 3 (03982) Diagnoses Obesity E66.9 BMI 32.0-32.9,adult Z68.32 Time Spent (min) 20
[2023-07-11 10:33] VITALS: BMI 33.6
== END 2023-07-11 10:45 | disposition home or self-care (01) ==
LOC: HO.HBS 08:13
PROVIDERS: PCP Student in an Organized Health Care Education/Training Program; Visit Provider Surgery
DX: E66.9 Obesity, unspecified (principal); Z68.32 Body mass index [BMI] 32.0-32.9, adult
CPT/HCPCS: 99442

== ENCOUNTER → 2023-07-11 08:13 | Outpatient (BNVA) | payer MEDICARE, SELFPAY | PROVIDERS: PCP Student in an Organized Health Care Education/Training Program; Visit Provider Surgery ==

== ENCOUNTER 2023-07-24 06:30 | Day surgery (SDC) | payer SELFPAY ==
--- NOTE | 2023-07-23 19:36 | P.HPSUR_ITS ---
Pre-Procedural Eval Section A Date of Service: 07/23/23 The patient is an INPATIENT: No The History & Physical has been completed within 30 days and I have reviewed it.: Yes Section B Chief Complaint: Obesity, unspecified Details of Present Illness: The patient is not satisfied with her experience with the Orbera gastric balloon and wants to remove it against medical advice Relevant Family History (Specify if Yes): No Relevant Social History: None Present Medications: None Medical History: No relevant PMH History of Previous Operations: Relevant previous surgery/procedure and date(s) (Orbera gastric balloon) Allergies: Allergies Allergy/AdvReac Type Severity Reaction Status Date / Time No Known Allergies Allergy Verified 06/11/23 10:09 Review of Systems Sugical H&P ROS: Negative: Cardiovascular, Respiratory, Neurological, Psychiatric, Hem-Onc, Allergic/Immunologic, Genitourinary, Musculoskeletal, Integumentary, Endocrine and Eyes/Ears/Nose/Throat and Yes, Specify: Constitu tion (fatigue) and Gastrointestinal (occasional nausea and vomiting) Exam Surgical H&P Exam: Normal: HEENT, Normal: Heart, Normal: Lungs, Normal: Extre mities, Normal: Abdomen, Normal: Skin and Normal: Neurological Plan Diagnosis/Plan: Unchanged (Plan for endoscopic gastric balloon removal. Risks of bleeding, perforation or esophageal injury were discussed with the patient.) I have reviewed the history and physical and performed a pertinent physical examination on my patient. No changes have occurred unless specified. Time Spent With Patient Time: Total time managing care of this patient today ____ minutes.
[2023-07-24] VITALS (8 sets, daily range): BP systolic 114–159; BP diastolic 54–91; PULSE 76–97; RESP 16–20; TEMP 36.1–37.4; O2SAT 97–100; BMI 32.2
--- NOTE | 2023-07-24 07:18 | HO.ANESPROP2 ---
[facility] Active Problems Active Problems: All Active Problems (Updated 07/11/23 @ 10:39 by Rudy Poon MD) BMI 32.0-32.9,adult (Acute) BMI 34.0-34.9,adult (Acute) Constipation (Acute) Hypothyroidism (Acute) Nausea (Acute) BMI 36.0-36.9,adult (Acute) BMI 37.0-37.9, adult (Acute) Obesity (Acute) DJD (degenerative joint disease) (Acute) GERD (gastroesophageal reflux disease) (Acute) Hypertension (Acute) Past Medical History Medical History History of thyroid disease Anemia DJD (degenerative joint disease) GERD (gastroesophageal reflux disease) Hypertension Family History Family history of problems with anesthesia: No Surgical History Surgical History History of gastric surgery Hx of oral surgery Hx of knee surgery Hx of section Hx of lumpectomy History of Problems with Anesthesia: No Social History Social History Alcohol intake: never Patient Tobacco Use Status: Former Tobacco user Tobacco use type: Cigarette Smoked in Last 30 Days: No Use of substances other than those prescribed or required for medical reasons: No Are you DNR?: No Advance Directives: No Advance Directives Information Provided: Yes Meds Allergies Allergy/AdvReac Type Severity Reaction Status Date / Time No Known Allergies Allergy Verified 07/24/23 07:00 Active Medications: Current Medications Lactated Ringer's (Lr) 1,000 mls @ 999 mls/hr IV .Q1H1M MEE Stop: 07/24/23 08:00 Home Medications Medication Instructions Recorded Confirmed Last Taken Type cholecalciferol (vitamin D3) 25 25 mcg PO DAILY 04/03/23 07/24/23 Unknown History mcg (1,000 unit) capsule multivitamin with iron (Daily 1 tab PO DAILY 04/03/23 07/24/23 Unknown History Multiple Vitamins with Iron tablet) Exam Height,Weight and Vital Signs: Height 5 ft 7 in Weight 93.349 kg Last Vital Signs Temp 99.4 F 07/24/23 07:04 Pulse 76 07/24/23 07:04 Resp 16 07/24/23 07:04 BP 139/76 07/24/23 07:04 Pulse Ox 97 07/24/23 07:04 O2 Del Method Room Air 07/24/23 07:04 Airway Mallampati Class: III (recessed chin) TM Dist: >3cm Neck ROM: Full Loose/Missing/Broken Teeth: No Heart: RRR Lungs: CTA Assessment and Plan Assessment Anesthesia Assessment: Anesthesia Plan Discussed and Chart Reviewed Final Anesthetic Review Family History of Problems with Anesthesia: No History of Problems with Anesthesia: No NPO: Yes ASA Class: II Final Preanesthetic Review: Meds/Allgs Chart Reviewed, Consent Obtained/Reviewed and Anes Risks/Benef Reviewed Patient Risk: Low Procedure Risk: Intermediate Anesthetic Plan Anesthetic Plan: GA
[2023-07-24] MEDS: Scopolamine 1.5 MG PATCH.TD.3 TRANSDERMA (07:22)
[2023-07-24] MEDS: Lactated Ringers 1,000 ML 999 ML IV (07:40)
--- NOTE | 2023-07-24 08:24 | P.BOP_ITS ---
Brief Operative Note Date of Service: 07/24/23 Pre-op diagnosis: Patient wishes to remove the gastric balloon Post-op diagnosis: same Procedure: PROCEDURE DATE: 07/09/2023 PREOPERATIVE DIAGNOSIS: Patient wishes to remove the gastric balloon against medical advice POSTOPERATIVE DIAGNOSIS: ?Same as above PROCEDURE: [id number] with endoscopic Orbera Gastric balloon removal Surgeon: ?Rk Poon M.D.. Ph.D. Wound Care Physician: None ? Anesthesia: IV sedation Estimated blood loss: None FINDINGS AND PROCEDURE: ? OPERATIVE INDICATIONS: ?The patient is a 72 year old female who underwent an endoscopic Orbera gastric balloon placement on 06/18/23. The patient wishes to remove the gastric balloon against medical advice. No complications have been observed. The patient understood the risks and was in agreement with the plan. ? PROCEDURE: After informed consent was obtained by the patient, the patient was ?transferred to the Operating Room and was placed in the supine position.? After successful induction of general anesthesia, the patient was placed in the left lateral decubitus position. An upper endoscopy was performed next, the oropharynx and esophagus appeared within the normal limits. There was no obvious hiatal hernia. The z-line was smooth. The stomach was entered and it appeared to be of normal size. There was a small amount of fluid. All fluid was aspirated from the stomach. The balloon was punctured with an endoscopic needle. All fluid was aspirated. The needle was removed and the balloon was grasped with a special 2-pronged endoscopic grasper and was removed from the mouth without difficulty. A follow-up endoscopy was done. There was no evidence of any injury into the stomach and the stomach was empty from fluid except some food the patient had eaten. At that point the stomach was decompressed and the scope was withdrawn from the patient's mouth while the stomach and esophagus were inspected again from any injuries. There were not any noted. The patient was awaken and was transferred in stable condition to the Recovery Room for further care. I was present and performed all steps of the procedure. There were no residents to assist with this case. Surgeon: Rudy Poon MD Surgeon: Rudy Poon MD Anesthesia: GETA Was an Wound Care Physician used for this Procedure?: No Estimated blood loss (mL): 0 IV fluids (mL): 1,000 Urine output (mL): 0 (No [place] to record output) Pathology: other (Orbera gastric balloon) Condition: stable Disposition: PACU
[2023-07-24] MEDS: Throat Lozenge, Medicated LOZENGE 1 LOZENGE MUCOUS MEM (09:25)
== END 2023-07-24 09:45 | disposition home or self-care (01) ==
PROVIDERS: PCP Student in an Organized Health Care Education/Training Program; Visit Provider Surgery
PROC: (CPT 43291; principal; 2023-07-24 07:30)
DX: E66.9 Obesity, unspecified (principal); Z68.32 Body mass index [BMI] 32.0-32.9, adult; Z91.198 Patient's noncompliance with other medical treatment and regimen for other reason; I10 Essential (primary) hypertension; K21.9 Gastro-esophageal reflux disease without esophagitis; Z98.84 Bariatric surgery status; Z87.891 Personal history of nicotine dependence; Z79.899 Other long term (current) drug therapy
CPT/HCPCS: 43291; 88300; J0330; J2250; J2704; J3010

== ENCOUNTER → 2023-07-24 06:30 | Outpatient (BNV) | payer SELFPAY | PROVIDERS: PCP Student in an Organized Health Care Education/Training Program; Visit Provider Surgery | DX: E66.9 Obesity, unspecified (principal) | CPT/HCPCS: 43291 ==